=== PATIENT | male | born 1960 | race Caucasian/White ===

== ENCOUNTER 2018-03-07 13:49 | Outpatient (CLI) | payer MEDICAID, SELFPAY ==
[2018-03-07 14:23] LABS: HCT 44.7 % (40.0-50.0); HGB 15.8 g/dL (13.5-17.5); Mean Corp. HGB Concentration 35.3 g/dL (32.0-36.0); Mean Corpuscular Volume 90.7 fL (80-95); Mean Platelet Volume 10.5 fL (8.0-11.0); Platelet Count 175 x1000/uL (130-400); RBC 4.93 m/cumm (4.50-6.00); RBC Distribution Width 13.1 % (11.8-14.1); White Blood Cell Count 4.86 k/cumm (4.4-10.8)
[2018-03-07 15:22] LABS: ALT 65 U/L (12-78); AST 30 U/L (15-37); Albumin 4.1 g/dL (3.4-5.0); Alkaline Phosphatase 71 U/L (46-116); Anion Gap 11.6 mmol/L (3-11); BUN 12 mg/dL (7-18); Bilirubin, Total 0.7 mg/dL (0.2-1.0); CO2 25.4 mmol/L (21.0-32.0); CREATININE 0.75 mg/dL (0.70-1.30); Calcium 9.7 mg/dL (8.5-10.1); Chloride 98 mmol/L (98-107); Cholesterol 252 mg/dL (50-200); Glucose 150 mg/dL (70-100); HDL Cholesterol 40 mg/dL (40-60); LDL CHOLESTEROL 139 mg/dL (<100); Potassium 4.6 mmol/L (3.5-5.1); Sodium 135 mmol/L (136-145); Triglyceride 320 mg/dL (30-150)
== END 2018-03-07 14:09 ==
PROVIDERS: PCP Student in an Organized Health Care Education/Training Program; Visit Provider Student in an Organized Health Care Education/Training Program
DX: I10 Essential (primary) hypertension (principal)
CPT/HCPCS: 36415; 80053; 80061; 83721; 85027

== ENCOUNTER 2019-01-23 12:49 | Outpatient (REF) | payer MEDICAID, SELFPAY ==
[2019-01-23 14:35] LABS: COMMENT (LAB VIEW ONLY) 107.81 mg/dL; Microalb ug/mg Crea 53.6 ug/mg Cr
== END 2019-01-23 13:09 ==
LOC: NCHCN 12:49
PROVIDERS: PCP Student in an Organized Health Care Education/Training Program; Visit Provider Student in an Organized Health Care Education/Training Program
DX: E11.9 Type 2 diabetes mellitus without complications (principal)
CPT/HCPCS: 82043; 82570

== ENCOUNTER 2019-09-18 21:23 | Outpatient (REF) | payer MEDICAID, SELFPAY ==
[2019-09-18 16:47] LABS: ALT 37 U/L (16-63); AST 20 U/L (15-37); Albumin 3.8 g/dL (3.4-5.0); Alkaline Phosphatase 61 U/L (46-116); Anion Gap 9.8 mmol/L (3-11); BUN 11 mg/dL (7-18); Bilirubin, Total 0.4 mg/dL (0.2-1.0); CO2 23.2 mmol/L (21.0-32.0); CREATININE 0.83 mg/dL (0.70-1.30); Calcium 9.5 mg/dL (8.5-10.1); Calculated LDL 138 mg/dL (<100); Chloride 102 mmol/L (98-107); Cholesterol 209 mg/dL (<200); Glucose 185 mg/dL (74-106); HDL Cholesterol 33 mg/dL (40-60); Potassium 4.3 mmol/L (3.5-5.1); Sodium 135 mmol/L (136-145); Total Protein 7.5 g/dL (6.4-8.2); Triglyceride 191 mg/dL (<150)
== END 2019-09-18 21:43 ==
LOC: LBN 21:23
PROVIDERS: PCP Student in an Organized Health Care Education/Training Program; Visit Provider Student in an Organized Health Care Education/Training Program
DX: E11.49 Type 2 diabetes mellitus with other diabetic neurological complication (principal); I10 Essential (primary) hypertension; J44.9 Chronic obstructive pulmonary disease, unspecified; E78.1 Pure hyperglyceridemia; E78.5 Hyperlipidemia, unspecified
CPT/HCPCS: 80053; 80061

== ENCOUNTER 2020-10-27 03:14 | Outpatient (CLI) | payer MEDICAID, SELFPAY ==
[2020-10-27 13:20] LABS: ALT 81 U/L (16-63); AST 40 U/L (15-37); Albumin 3.7 g/dL (3.4-5.0); Alkaline Phosphatase 59 U/L (46-116); Anion Gap 10.1 mmol/L (3-11); BUN 15 mg/dL (7-18); Bilirubin, Total 0.4 mg/dL (0.2-1.0); CO2 24.9 mmol/L (21.0-32.0); CREATININE 0.9 mg/dL (0.70-1.30); Calcium 9.1 mg/dL (8.5-10.1); Chloride 105 mmol/L (98-107); Cholesterol 215 mg/dL (<200); Glucose 133 mg/dL (74-106); HDL Cholesterol 29 mg/dL (40-60); Magnesium 1.7 mg/dL (1.8-2.4); Potassium 4.6 mmol/L (3.5-5.1); Sodium 140 mmol/L (136-145); Total Protein 7.3 g/dL (6.4-8.2); Triglyceride 599 mg/dL (<150)
[2020-10-27 13:32] LABS: LDL CHOLESTEROL 88 mg/dL (<100)
== END 2020-10-27 03:15 | disposition home or self-care (01) ==
LOC: LOS 03:15
PROVIDERS: PCP Student in an Organized Health Care Education/Training Program; Visit Provider Student in an Organized Health Care Education/Training Program
DX: I10 Essential (primary) hypertension (principal); E11.65 Type 2 diabetes mellitus with hyperglycemia; E83.42 Hypomagnesemia; Z13.220 Encounter for screening for lipoid disorders
CPT/HCPCS: 36415; 80053; 80061; 83721; 83735

== ENCOUNTER 2021-01-06 02:28 | Outpatient (CLI) | payer MEDICAID, SELFPAY ==
[2021-01-06 12:51] LABS: ALT 51 U/L (16-63); AST 26 U/L (15-37); Albumin 3.5 g/dL (3.4-5.0); Alkaline Phosphatase 62 U/L (46-116); BUN 15 mg/dL (7-18); Bilirubin, Direct 0.1 mg/dL (0.0-0.2); Bilirubin, Total 0.5 mg/dL (0.2-1.0); CREATININE 0.8 mg/dL (0.70-1.30); Calcium 9.1 mg/dL (8.5-10.1); Chloride 102 mmol/L (98-107); GGT 79 U/L (15-85); Glucose 215 mg/dL (74-106); Lipase 156 U/L (73-393); Potassium 4.4 mmol/L (3.5-5.1); Sodium 137 mmol/L (136-145); Total Protein 7.2 g/dL (6.4-8.2)
== END 2021-01-06 02:29 | disposition home or self-care (01) ==
LOC: LOS 02:29
PROVIDERS: PCP Student in an Organized Health Care Education/Training Program; Visit Provider Student in an Organized Health Care Education/Training Program
DX: E11.49 Type 2 diabetes mellitus with other diabetic neurological complication; E78.1 Pure hyperglyceridemia; R74.8 Abnormal levels of other serum enzymes; R10.13 Epigastric pain; I10 Essential (primary) hypertension; E46 Unspecified protein-calorie malnutrition
CPT/HCPCS: 36415; 80053; 80076; 83690; 82977

== ENCOUNTER 2021-05-03 02:09 | Outpatient (CLI) | payer MEDICAID, SELFPAY ==
[2021-05-03 11:50] LABS: ALT 43 U/L (16-63); AST 22 U/L (15-37); Albumin 3.6 g/dL (3.4-5.0); Alkaline Phosphatase 72 U/L (46-116); Anion Gap 10.5 mmol/L (3-11); BUN 16 mg/dL (7-18); Bilirubin, Total 0.4 mg/dL (0.2-1.0); CO2 25.5 mmol/L (21.0-32.0); CREATININE 0.8 mg/dL (0.70-1.30); Calcium 9.2 mg/dL (8.5-10.1); Chloride 104 mmol/L (98-107); Cholesterol 261 mg/dL (<200); Glucose 197 mg/dL (74-106); HDL Cholesterol 38 mg/dL (40-60); Potassium 4.3 mmol/L (3.5-5.1); Sodium 140 mmol/L (136-145); Total Protein 7.6 g/dL (6.4-8.2); Triglyceride 452 mg/dL (<150)
[2021-05-03 12:01] LABS: LDL CHOLESTEROL 113 mg/dL (<100)
== END 2021-05-03 02:10 | disposition home or self-care (01) ==
LOC: LBO 02:09
PROVIDERS: PCP Student in an Organized Health Care Education/Training Program; Visit Provider Student in an Organized Health Care Education/Training Program
DX: I10 Essential (primary) hypertension (principal); E11.49 Type 2 diabetes mellitus with other diabetic neurological complication; R79.89 Other specified abnormal findings of blood chemistry; Z13.220 Encounter for screening for lipoid disorders
CPT/HCPCS: 36415; 80053; 80061; 83721

== ENCOUNTER 2021-07-12 15:40 | Outpatient (REF) | payer MEDICAID, SELFPAY | END 2021-07-12 15:41 | disposition home or self-care (01) | LOC: LBN 15:40 | PROVIDERS: PCP Student in an Organized Health Care Education/Training Program; Visit Provider Family Medicine | DX: L02.214 Cutaneous abscess of groin | CPT/HCPCS: 87070; 87205 ==

== ENCOUNTER 2021-12-01 03:16 | Outpatient (CLI) | payer MEDICAID, SELFPAY ==
[2021-12-01 11:21] LABS: Cholesterol 278 mg/dL (<200); Folate 11.1 ng/mL (8.6-20.0); HDL Cholesterol 29 mg/dL (40-60); Vitamin B12 535 pg/mL (193-986)
[2021-12-01 11:22] LABS: Triglyceride 1513 mg/dL (<150)
[2021-12-01 11:32] LABS: LDL CHOLESTEROL 87 mg/dL (<100)
[2021-12-07 05:17] LABS: Thiamine (Vitamin B1), WB 107 nmol/L (70-180)
== END 2021-12-01 03:17 | disposition home or self-care (01) ==
LOC: LBO 03:16
PROVIDERS: PCP Student in an Organized Health Care Education/Training Program; Visit Provider Student in an Organized Health Care Education/Training Program
DX: E11.49 Type 2 diabetes mellitus with other diabetic neurological complication (principal); R20.2 Paresthesia of skin; E78.5 Hyperlipidemia, unspecified; E78.1 Pure hyperglyceridemia; I10 Essential (primary) hypertension
CPT/HCPCS: 36415; 80061; 83721; 82607; 82746; 84425

== ENCOUNTER 2022-02-24 02:15 | Outpatient (CLI) | payer MEDICAID, SELFPAY ==
[2022-02-24 11:02] LABS: Calculated LDL 134 mg/dL (<100); Cholesterol 237 mg/dL (<200); HDL Cholesterol 48 mg/dL (40-60); Triglyceride 278 mg/dL (<150)
== END 2022-02-24 02:16 | disposition home or self-care (01) ==
LOC: LBO 02:15
PROVIDERS: PCP Student in an Organized Health Care Education/Training Program; Visit Provider Student in an Organized Health Care Education/Training Program
DX: E78.1 Pure hyperglyceridemia (principal)
CPT/HCPCS: 36415; 80061

== ENCOUNTER 2022-08-22 17:06 | Outpatient (CLI) | payer MEDICAID, SELFPAY ==
[2022-08-22 17:18] LABS: COMMENT (LAB VIEW ONLY) 68.69 mg/dL
[2022-08-22 17:19] LABS: Microalb ug/mg Crea 524.4 ug/mg Cr
[2022-08-22 17:23] LABS: ALT 45 U/L (16-63); AST 21 U/L (15-37); Albumin 3.4 g/dL (3.4-5.0); Alkaline Phosphatase 72 U/L (46-116); BUN 16 mg/dL (7-18); Bilirubin, Total 0.5 mg/dL (0.2-1.0); CREATININE 0.8 mg/dL (0.70-1.30); Chloride 105 mmol/L (98-107); Cholesterol 265 mg/dL (<200); Estimated GFR 100.06 (mL/min/1.73m2); Glucose 134 mg/dL (74-106); HDL Cholesterol 41 mg/dL (40-60); Potassium 3.5 mmol/L (3.5-5.1); Sodium 137 mmol/L (136-145); Total Protein 7.8 g/dL (6.4-8.2); Triglyceride 780 mg/dL (<150)
[2022-08-22 17:46] LABS: LDL CHOLESTEROL 77 mg/dL (<100)
== END 2022-08-22 17:07 | disposition home or self-care (01) ==
LOC: LBO 17:06
PROVIDERS: PCP Student in an Organized Health Care Education/Training Program; Visit Provider Student in an Organized Health Care Education/Training Program
DX: E11.65 Type 2 diabetes mellitus with hyperglycemia (principal); I10 Essential (primary) hypertension; E78.1 Pure hyperglyceridemia; E83.40 Disorders of magnesium metabolism, unspecified
CPT/HCPCS: 36415; 80053; 80061; 83721; 82043; 82570; 83036

== ENCOUNTER 2022-09-08 02:29 | Outpatient (CLI) | payer MEDICAID, SELFPAY ==
[2022-09-08 12:47] LABS: Lipase 175 U/L (16-77)
[2022-09-08 12:56] LABS: ALT 39 U/L (16-63); AST 21 U/L (15-37); Albumin 3.5 g/dL (3.4-5.0); Alkaline Phosphatase 62 U/L (46-116); Anion Gap 6.7 mmol/L (3-11); BUN 25 mg/dL (7-18); Bilirubin, Direct 0.1 mg/dL (0.0-0.2); Bilirubin, Total 0.4 mg/dL (0.2-1.0); CO2 27.3 mmol/L (21.0-32.0); CREATININE 0.9 mg/dL (0.70-1.30); Calcium 9.4 mg/dL (8.5-10.1); Calculated LDL 77 mg/dL (<100); Chloride 103 mmol/L (98-107); Cholesterol 176 mg/dL (<200); Estimated GFR 96.57 (mL/min/1.73m2); Glucose 162 mg/dL (74-106); HDL Cholesterol 39 mg/dL (40-60); Magnesium 1.7 mg/dL (1.8-2.4); Potassium 4.7 mmol/L (3.5-5.1); Sodium 137 mmol/L (136-145); Total Protein 7.8 g/dL (6.4-8.2); Triglyceride 304 mg/dL (<150)
== END 2022-09-08 02:30 | disposition home or self-care (01) ==
LOC: LBO 02:29
PROVIDERS: PCP Student in an Organized Health Care Education/Training Program; Visit Provider Student in an Organized Health Care Education/Training Program
DX: E11.49 Type 2 diabetes mellitus with other diabetic neurological complication (principal); E11.65 Type 2 diabetes mellitus with hyperglycemia; E78.1 Pure hyperglyceridemia; R79.89 Other specified abnormal findings of blood chemistry; E83.40 Disorders of magnesium metabolism, unspecified; Q45.3 Other congenital malformations of pancreas and pancreatic duct
CPT/HCPCS: 36415; 80048; 80061; 80076; 83690; 83735

== ENCOUNTER 2023-01-09 02:34 | Outpatient (CLI) | payer MEDICAID, SELFPAY ==
[2023-01-09 10:35] LABS: Anion Gap 6.5 mmol/L (3-11); BUN 18 mg/dL (7-18); CO2 25.5 mmol/L (21.0-32.0); CREATININE 0.8 mg/dL (0.70-1.30); Calcium 10.1 mg/dL (8.5-10.1); Calculated LDL 73 mg/dL (<100); Chloride 105 mmol/L (98-107); Cholesterol 160 mg/dL (<200); Estimated GFR 99.44 (mL/min/1.73m2); Glucose 141 mg/dL (74-106); HDL Cholesterol 49 mg/dL (40-60); Magnesium 1.7 mg/dL (1.8-2.4); Potassium 4.4 mmol/L (3.5-5.1); Sodium 137 mmol/L (136-145); Triglyceride 190 mg/dL (<150)
== END 2023-01-09 02:35 | disposition home or self-care (01) ==
LOC: LBO 02:34
PROVIDERS: PCP Student in an Organized Health Care Education/Training Program; Visit Provider Student in an Organized Health Care Education/Training Program
DX: I10 Essential (primary) hypertension (principal); E46 Unspecified protein-calorie malnutrition; Z13.220 Encounter for screening for lipoid disorders
CPT/HCPCS: 36415; 80048; 80061; 83735

== ENCOUNTER 2023-10-22 02:13 | Outpatient (CLI) | payer MEDICAID, SELFPAY ==
--- OUTSIDE RECORDS SUMMARY | 2023-10-22 02:15 | XMS_ITS | Encounter Summary ---
Author Organization [facility] Address [address] [place] [address] Care Team Providers Care Dobie Man Name Role Phone Unknown, Provider Primary Care Provider [phone] Encounter Details Date Type Department Care Team (Late st Contact Info) Description 03/29/2023 Lab Requisition [facility] - Main [place] [address], [place] [id number] Hector Hirsch MD [facility] [address] [phone] Other lesions of oral mucosa Social History Tobacco Use Types Packs/Day Years Used Date Smoking Tobacco: Never Assessed Sex and Gender Information Value Date Recorded Sex Assigned at Not on file Gender Identity Not on file Sexual Orientation Not on file documented as of this encounter Plan of Treatment Not on file documented as of this encounter Procedures Procedure Name Priority Date/Time Associated Diagnosis Comments SURGICAL PATHOLOGY Today 03/28/2023 Other lesions of oral mucosa documented in this encounter Results * SURGICAL PATHOLOGY (03/28/2023) Note to Patient The following pathology results have been interpreted by your pathologist and may be available to you before your health provider has had the opportunity to review them. Please allow time for your provider to receive these results and explore management options, if applicable. 04/02/2023 13:44 [facility] Final Diagnosis A. RETROMOLAR PAD, LEFT, INCISIONAL BIOPSY: - Squamous papilloma. See comment. - Negative for dysplasia. 04/02/2023 13:44 [facility] Diagnosis Comment Additional levels were examined. Sections show mildly hyperplastic, bland appearing squamous mucosa with hyperkeratosis and focal papillary contour. No evidence of dysplasia or malignancy. 04/02/2023 13:44 [facility] Attestation By the signature below, the attending physician certifies that they have 1) personally conducted a gross and/or microscopic examination of the described specimen(s), and/or personally interpreted the results of laboratory testing of the described specimen(s), and 2) personally rendered or confirmed the above diagnosis. 04/02/2023 13:44 [facility] at 1344 Clinical History 1 x 2 mm pedunculated papillary lesion from lingual gingiva w/ mottled appearing base 04/02/2023 13:44 [facility] Gross Description A. Received in formalin with, [place] and, left retromolar pad and consists of 2 portions of gastelum tissue, 3 x 2 x 1 mm (papillary) and 6 x 3 x 2 mm. The larger portion is inked black and bisected (discrete margin not identified). In toto, A1. LANCE SHERIDAN(ASCP) 03/29/2023 15:25 04/02/2023 13:44 [facility] Performing Lab [facility] 10/2023 13:44 [facility] Scanned Images 04/02/2023 13:44 [facility] Tissue ORAL CAVITY STRUCTURE / Unknown 03/28/2023 03/29/2023 15:07 EST Hector Hirsch MD DMD PATHOLOGY [facility] [address] [place] [address] documented in this encounter Visit Diagnoses Diagnosis Other lesions of oral mucosa documented in this encounter Care Teams Dobie Man Relationship Specialty Start Date End Date Unknown, Provider, PCP - General 03/26/23 documented as of this encounter
--- OUTSIDE RECORDS SUMMARY | 2023-10-22 02:15 | XMS_ITS | Referral Summary ---
Author Organization [facility] Address [address] [place] [address] Care Team Providers Care Escort Patients Name Role Phone Unknown, Provider Primary Care Provider Social History Tobacco Use Types Packs/Day Years Used Date Smoking Tobacco: Never Assessed Sex and Gender Information Value Date Recorded Sex Assigned at Not on file Gender Identity Not on file Sexual Orientation Not on file Plan of Treatment Not on file Care Teams Escort Patients Relationship Specialty Start Date End Date Unknown, Provider, PCP - General 03/26/23
--- OUTSIDE RECORDS SUMMARY | 2023-10-22 02:15 | XMS_ITS | Clinical Summary ---
Author Organization [facility] Address [address] [place] [address] Care Team Providers Care Auto Body Service Mechanic Name Role Phone Unknown, Provider Primary Care Provider Social History Tobacco Use Types Packs/Day Years Used Date Smoking Tobacco: Never Assessed Sex and Gender Information Value Date Recorded Sex Assigned at Not on file Gender Identity Not on file Sexual Orientation Not on file Plan of Treatment Health Maintenance Due Date Last Done Comments Hepatitis C Screen 1960 RSV Immunization ( o r 60+ Years) (1 - 1-dose 60+ series) 2019 COVID-19 Vaccine ( season) 2022 Care Teams Auto Body Service Mechanic Relationship Specialty Start Date End Date Unknown, Provider, PCP - General 03/26/23
[2023-10-22 11:09] LABS: Abs Immature Grans 0.03 10^3/uL (0.0-0.06); Absolute Basophil Count 0.05 10^3/uL (0.0-0.2); Absolute Eosinophil Count 0.17 10^3/uL (0.0-0.7); Absolute Lymphocyte Count 2.74 10^3/uL (1.2-3.4); Absolute Monocyte Count 0.46 10^3/uL (0.1-0.8); Basophils % 0.7 %; Eosinophils % 2.2 %; HCT 39.5 % (40.0-50.0); HGB 13.6 g/dL (13.5-17.5); Immature Grans % 0.4 %; Lymphocytes % 35.8 %; MCH 30.6 pg (27.0-33.0); MCHC 34.4 % (32.0-36.0); MCV 89 fL (80-95); MPV 11.5 fL (8.0-11.0); Neutrophils % 54.9 %; Platelet Count 146 10^3/uL (130-400); RBC 4.44 10^6/uL (4.36-5.78); RDW 13.2 % (11.8-14.1); WBC 7.65 10^3/uL (4.4-10.8)
[2023-10-22 12:14] LABS: ALT 49 U/L (16-63); AST 32 U/L (15-37); Albumin 3.4 g/dL (3.4-5.0); Alkaline Phosphatase 63 U/L (46-116); BUN 15 mg/dL (7-18); Bilirubin, Total 0.56 mg/dL (0.2-1.0); Calcium 9.3 mg/dL (8.5-10.1); Calculated LDL 82 mg/dL (<100); Chloride 107 mmol/L (98-107); Cholesterol 175 mg/dL (<200); Estimated GFR 84.05 (mL/min/1.73m2); Glucose 111 mg/dL (74-106); HDL Cholesterol 44 mg/dL (40-60); Potassium 3.4 mmol/L (3.5-5.1); Sodium 141 mmol/L (136-145); Total Protein 7.7 g/dL (6.4-8.2); Triglyceride 247 mg/dL (<150); Vitamin D 25 Total 18.4 ng/mL (30-100)
== END 2023-10-22 02:14 | disposition home or self-care (01) ==
LOC: LBO 02:13
PROVIDERS: Absent Provider Student in an Organized Health Care Education/Training Program; PCP Student in an Organized Health Care Education/Training Program; Visit Provider Student in an Organized Health Care Education/Training Program
DX: Z13.220 Encounter for screening for lipoid disorders (principal); E46 Unspecified protein-calorie malnutrition; E55.9 Vitamin D deficiency, unspecified; D64.9 Anemia, unspecified; R53.83 Other fatigue; I25.10 Atherosclerotic heart disease of native coronary artery without angina pectoris; Z91.89 Other specified personal risk factors, not elsewhere classified; E11.9 Type 2 diabetes mellitus without complications; I10 Essential (primary) hypertension
CPT/HCPCS: 36415; 80053; 80061; 82306; 85025

== ENCOUNTER 2023-12-13 01:35 | Outpatient (CLI) | payer MEDICAID, SELFPAY ==
--- NOTE | 2023-12-13 07:30 | DI.CTLCSR_ITS ---
Exam(s) CT CHEST LUNG CANCER SCREEN EXAM: CT CHEST LUNG CANCER SCREEN CLINICAL HISTORY: Screening for lung cancer F17.210 NICOTINE DEPENDENCE F17.200 TECHNIQUE: Imaging Protocol: Axial computed tomography images with coronal and sagittal reformatted images were created and reviewed. Low dose screening protocol. COMPARISON: CT ABD PELVIS WITH CONTRAST from 06/03/2008 FINDINGS: Tracheobronchial tree: No bronchiectasis or mucus plugging. Mediastinum and Michelle: No dominant adenopathy or fluid collection. Pulmonary parenchyma: No consolidation or dominant measurable mass. Mild emphysematous changes. Lung Nodules: None. Pleura: No effusion. No pneumothorax. Heart: The heart is not dilated. Mild coronary artery calcifications are seen. Aorta: Thoracic aorta non-dilated. Upper abdomen: Unremarkable. Bones: Flowing osteophytes along the anterior spine. Soft Tissues: Unremarkable. IMPRESSION: No suspicious pulmonary nodules. Lung RADS Cat 1 - Negative: No nodules and definitely benign nodules Lung-RADS 1.0 CATEGORIES: Category 0 - Prior chest CT exam(s) being located for comparison. Category 1 - Annual screening in 12 months. No nodules or definitely benign nodules. Category 2 - Annual screening in 12 months. Benign appearance. Nodules with low likelihood of becomin g active cancer. Category 3 - 6-month follow-up. Probably benign. Short-term follow-up suggested. Nodules with low lik elihood of becoming active cancer. Category 4A - 3-month follow-up and CT/PET if >8 mm in size. Suspicious finding. Findings which requi re additional testing. Category 4B - Findings which require additional testing and tissue sampling. Category 4X - Category 3 or 4 nodules with additional features or imaging findings that increases the suspicion of malignancy. Modifier S- Potentially clinically significant findings (non lung cancer) RADIATION DOSE DELIVERED: !Error Total DLP DATA REPOSITORY: All CT scans at this facility are submitted to the National Radiology Data Registry (NRDR) Dose Index Registry (DIR) with the [employer] (ACR). RADIATION OPTIMIZATION: All CT scans at this facility use at least one of these dose optimization te chniques: automated exposure control; mA and/or kV adjustment per patient size (includes targeted exa ms where dose is matched to clinical indication); or iterative reconstruction.
== END 2023-12-13 01:55 ==
LOC: DI 01:35
PROVIDERS: PCP Student in an Organized Health Care Education/Training Program; Visit Provider Nurse Practitioner Adult Health
DX: F17.210 Nicotine dependence, cigarettes, uncomplicated; Z12.2 Encounter for screening for malignant neoplasm of respiratory organs
CPT/HCPCS: 71271

== ENCOUNTER 2024-03-25 02:11 | Outpatient (CLI) | payer MEDICAID, SELFPAY ==
[2024-03-25 12:51] LABS: BUN 25 mg/dL (7-18); CREATININE 1.1 mg/dL (0.70-1.30); Calcium 9.3 mg/dL (8.5-10.1); Cholesterol 284 mg/dL (<200); Estimated GFR 74.96 (mL/min/1.73m2); Glucose 163 mg/dL (74-106); Triglyceride 2647 mg/dL (<150)
[2024-03-25 12:52] LABS: Albumin 3.3 g/dL (3.4-5.0); Bilirubin, Total 0.33 mg/dL (0.2-1.0); HDL Cholesterol 34 mg/dL (40-60); Total Protein 7.5 g/dL (6.4-8.2)
[2024-03-25 12:53] LABS: ALT 31 U/L (16-63); AST 25 U/L (15-37); Alkaline Phosphatase 83 U/L (46-116); Anion Gap 28.2 mmol/L (3-11); CO2 9.8 mmol/L (21.0-32.0); Chloride 106 mmol/L (98-107); Sodium 144 mmol/L (136-145)
[2024-03-25 12:54] LABS: Bilirubin, Direct 0.1 mg/dL (0.0-0.2); Vitamin D 25 Total 13.4 ng/mL (30-100)
[2024-03-25 12:55] LABS: LDL CHOLESTEROL 44 mg/dL (<100)
== END 2024-03-25 02:12 | disposition home or self-care (01) ==
LOC: LBO 02:11
PROVIDERS: PCP Student in an Organized Health Care Education/Training Program; Referring Provider Student in an Organized Health Care Education/Training Program; Visit Provider Student in an Organized Health Care Education/Training Program
DX: Z13.220 Encounter for screening for lipoid disorders (principal); E11.49 Type 2 diabetes mellitus with other diabetic neurological complication; K90.3 Pancreatic steatorrhea; E55.9 Vitamin D deficiency, unspecified; Z87.19 Personal history of other diseases of the digestive system; K90.9 Intestinal malabsorption, unspecified
CPT/HCPCS: 36415; 80048; 80061; 80076; 82306; 83721

== ENCOUNTER 2024-04-08 04:00 | Outpatient (CLI) | payer MEDICAID, SELFPAY ==
[2024-04-08 13:46] LABS: ALT 32 U/L (16-63); AST 24 U/L (15-37); Albumin 3.8 g/dL (3.4-5.0); Alkaline Phosphatase 70 U/L (46-116); Anion Gap 9.9 mmol/L (3-11); BUN 25 mg/dL (7-18); Bilirubin, Total 0.45 mg/dL (0.2-1.0); CO2 26.1 mmol/L (21.0-32.0); Calcium 9.9 mg/dL (8.5-10.1); Calculated LDL 62 mg/dL (<100); Chloride 106 mmol/L (98-107); Cholesterol 154 mg/dL (<200); Estimated GFR 84.05 (mL/min/1.73m2); Glucose 85 mg/dL (74-106); HDL Cholesterol 49 mg/dL (40-60); Potassium 4.7 mmol/L (3.5-5.1); Sodium 142 mmol/L (136-145); Triglyceride 215 mg/dL (<150)
[2024-04-08 13:57] LABS: Bilirubin, Direct 0.2 mg/dL (0.0-0.2); Lipase 320 U/L (<78)
[2024-04-10 15:51] LABS: Lipoprotein (a) 35 nmol/L (<75)
== END 2024-04-08 04:01 | disposition home or self-care (01) ==
LOC: LBO 04:00
PROVIDERS: Nurse Practitioner Family; PCP Student in an Organized Health Care Education/Training Program; Visit Provider Family Medicine
DX: Z87.19 Personal history of other diseases of the digestive system (principal); E78.1 Pure hyperglyceridemia; I10 Essential (primary) hypertension; R94.5 Abnormal results of liver function studies; Z13.220 Encounter for screening for lipoid disorders
CPT/HCPCS: 36415; 80048; 80061; 80076; 83690; 83695